=== PATIENT | female | born 1995 | race Hispanic/Latino ===

== ENCOUNTER 2024-02-18 23:28 | Emergency (ER) | payer OTHER, SELFPAY ==
--- NOTE | ~2024-02-18 | XR_ITS ---
AP and lateral views of the left tibia/fibula Clinical History: Trauma Findings: No acute fracture or dislocation is seen. Osseous alignment is anatomic. Mild degenerative change at the intercondylar notch and lateral compartment of the knee. Tibiotalar joint intact. Soft tissues are unremarkable. Impression: No acute abnormality. Mild degenerative changes at the knee, as detailed above. Reviewed, dictated and finalized at location . Impression: No acute abnormality. Mild degenerative changes at the knee, as detailed above.
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
--- NOTE | ~2024-02-18 | XR_ITS ---
Left Hand Technique: PA, oblique, and lateral views were obtained. Clinical History: Injury Findings: No acute fracture or dislocation is seen. Osseous alignment is anatomic. Joint spaces are p reserved. Soft tissues are unremarkable. Impression: Unremarkable left hand. Reviewed, dictated and finalized at location M. Impression: Unremarkable left hand.
[2024-02-18 23:33] VITALS: BP 132/86; PULSE 98; RESP 18; TEMP 36.7; O2SAT 98
[2024-02-18 23:50] VITALS: O2SAT 99
[2024-02-19] VITALS (10 sets, daily range): BP systolic 114–138; BP diastolic 72–92; PULSE 68; RESP 16; O2SAT 95–99
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
[2024-02-19] MEDS: LIDOCAINE HCL 1% LOCAL INJ 10 ML VIAL 20 ML INFILTRATE (00:15)
[2024-02-19] MEDS: ACETAMINOPHEN 500 MG TABLET 1000 MG PO (00:15)
[2024-02-19] MEDS: TETANUS,DIPHTHERIA,AC PERTUSSIS ADULT (0.5 ML) BOOSTRIX IM (00:15)
[2024-02-19 00:24] LABS: SPREG INTERNAL CONTROL Positive
[2024-02-19 00:32] LABS: Serum Qual hCG Negative
[2024-02-19] MEDS: ONDANSETRON INJ 4 MG/2 ML VIAL IV PUSH (03:14)
== END 2024-02-19 03:47 | disposition home or self-care (01) ==
PROVIDERS: Emergency Provider Student in an Organized Health Care Education/Training Program
DX: S61.412A Laceration without foreign body of left hand, initial encounter (principal); S00.81XA Abrasion of other part of head, initial encounter; T14.8XXA Other injury of unspecified body region, initial encounter; Z23 Encounter for immunization; X99.8XXA Assault by other sharp object, initial encounter; Y04.2XXA Assault by strike against or bumped into by another person, initial encounter
CPT/HCPCS: 12002; 36415; 70450; 73130; 73590; 84703; 90471; 90715; 96374; 99284; A9270; J2405

== ENCOUNTER 2024-06-17 17:10 | Emergency (ER) | payer OTHER, SELFPAY ==
--- NOTE | ~2024-06-17 | XR_ITS ---
XR chest 2V Ordering provider: Ghazal Brooks MD History: 28 years Female with . CP . Comparison: None. FINDINGS: MEDIASTINUM: The cardiac silhouette is not enlarged. LUNGS: No infiltrates, effusions or pneumothorax. OTHER: No free air under the diaphragm. IMPRESSION: No acute cardiopulmonary pathology. Reviewed, dictated and finalized at location A.
--- NOTE | 2024-06-17 17:11 | ECG_ITS ---
Test Date: 2024-06-17 17:19:10 Measurements Intervals [place] Rate: 71 P: 13 MD: 139 QRS: 49 QRSD: 90 T: -1 QT: 377 QTc: 411 Interpretive Statements SINUS RHYTHM DELAYED PRECORDIAL R/S TRANSITION BORDERLINE T WAVE ABNORMALITY- INFERIOR LEADS BORDERLINE ECG No previous ECG available for comparison Electronically Signed On 06-17-2024 18:22:11 CDT by Alcides Munoz D.O.
[2024-06-17 17:37] VITALS: BP 131/72; PULSE 72; RESP 16; TEMP 36.7; O2SAT 98
[2024-06-17 17:42] LABS: Basophils Percent Auto 0.4 % (0.2-1.2); Eosinophils Absolute Auto 0.3 K/mm3 (0-0.3); Eosinophils Percent Auto 3.2 % (0-4.4); Hematocrit 42.7 % (37.0-47.0); Hemoglobin 14.5 g/dL (12.0-15.0); Immature Granulocyte Absolute 0.03 K/mm3 (0.00-0.031); Immature Granulocyte Percent A 0.3 % (0-0.5); Lymphocytes Percent Auto 41.5 % (18.3-44.2); Mean Corpuscular Hemoglobin 29.6 pg (26-34); Mean Corpuscular Volume 87.1 fl (80-100); Mean Platelet Volume 10.9 fl (7.4-10.4); Monocytes Absolute Auto 0.7 K/mm3 (0.1-0.6); Monocytes Percent Auto 7.1 % (2.6-8.5); Neutrophils Absolute Auto 4.7 K/mm3 (1.3-6.7); Neutrophils Percent Auto 47.5 % (45.5-73.1); Platelet Count Result 273 k/mm3 (150-375); Red Cell Distribution Width 13.9 % (11.5-14.5); White Blood Count 9.9 K/mm3 (4.5-10.0)
[2024-06-17 17:44] VITALS: O2SAT 98
[2024-06-17 17:45] VITALS: PULSE 72
[2024-06-17 17:53] LABS: Alanine Aminotransferase 75 U/L (6-35); Albumin Level 4.3 g/dL (3.5-5.1); Alkaline Phosphatase 101 U/L (38-126); Anion Gap 9 mmol/L (4-12); Aspartate Amino Transferase 48 U/L (14-36); Bilirubin,Total 0.4 mg/dL (0.2-1.3); Blood Urea Nitrogen 18 mg/dL (7-17); Calcium 8.6 mg/dL (8.4-10.2); Carbon Dioxide 23 mmol/L (22-30); Chloride 105 mmol/L (98-107); Estimated CRCL calculation 228 ml/min; Estimated Glomerular Filt Rate > 60; Glucose 95 mg/dL (65-110); Lipase 89 U/L (23-300); Potassium 4.1 mmol/L (3.4-5.0); Prothrombin Time 13.5 Seconds (11.1-14.7); Sodium 137 mmol/L (137-145)
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
[2024-06-17 18:00] VITALS: BP 130/70; PULSE 77; RESP 16; TEMP 36.7; O2SAT 99
[2024-06-17 18:05] LABS: Troponin I < 0.012 ng/mL (0.000-0.034)
[2024-06-17 18:14] LABS: D Dimer 0.33 ug/mL (<0.48)
[2024-06-17 19:29] VITALS: BP 122/74; PULSE 71; RESP 17; O2SAT 98
== END 2024-06-17 19:32 | disposition home or self-care (01) ==
PROVIDERS: Student in an Organized Health Care Education/Training Program; Emergency Provider Emergency Medicine
DX: R07.89 Other chest pain (principal); M94.0 Chondrocostal junction syndrome [Tietze]
CPT/HCPCS: 36415; 71046; 80053; 83690; 84484; 85025; 85380; 85610; 85730; 93005; 99284